=== PATIENT | male | born 1995 | race Caucasian/White ===

== ENCOUNTER 2018-04-03 15:15 | Emergency (ER) | payer SELFPAY ==
[~2018-04-03] VITALS: Ht 167.6 cm; Wt 63.6 kg
[2018-04-03] MEDS ORDERED: AMOX TR/POT CLAV 875 MG/125 MG TABLET PO ONE (16:15)
[2018-04-03] MEDS ORDERED: IBUPROFEN 600 MG TABLET PO ONE (16:15)
[2018-04-03] MEDS ORDERED: PERTUSS(ACELL),DIPH,TET VAC/PF 0.5 ML VIAL IM ONE (16:15)
[2018-04-03] MEDS ORDERED: BACITRACIN 0.9 GM PACKET OINTMENT TP ONE (16:45)
[2018-04-03 17:17] VITALS: BP 136/72
== END 2018-04-03 17:22 | disposition home or self-care (01) ==
LOC: EMS 15:16
DX: S41.152A Open bite of left upper arm, initial encounter (principal); W54.0XXA Bitten by dog, initial encounter; Y93.89 Activity, other specified; Y92.89 Other specified places as the place of occurrence of the external cause; Y99.8 Other external cause status
CPT/HCPCS: 90471; 90715